=== PATIENT | female | born 1960 | race Caucasian/White ===

== ENCOUNTER → 2023-12-05 10:11 | Outpatient (CLI) | payer OTHER, SELFPAY ==
--- NOTE | 2023-12-05 10:15 | DI.MRI.S_ITS ---
PROCEDURE: MR KNEE LT WO CON INDICATIONS: INTERNAL DERANGEMENT OF LEFT KNEE TECHNIQUE: Noncontrast sagittal PD fast spin echo and T2 fast spin echo with fat saturation, sagittal 3-D FLASH with fat saturation; coronal T1 spin echo and PD fast spin echo with fat saturation, and axial PD fast spin echo with fat saturation through the knee. COMPARISON: None. FINDINGS: Posterior medial popliteal cyst measures up to approximately 4.7 cm cc by 3.2 cm AP x 1.5 cm transverse maximal dimensions. Associated moderate surrounding soft tissue edema and fluid extends posteriorly and caudally which is the appearance of ruptured popliteal cyst in thirst surrounding soft tissues. Fluid is noted posterior to the medial and lateral menisci posterior horns suggestive of meniscocapsular separation. Mild knee joint effusion. Increased T2 weighted signal, injury/strain of the inter meniscal ligament and in the posterior oblique ligament. Menisci: Mild increased T2 weighted signal internally in the medial aspect of the posterior horn of the medial meniscus suggest chronic degenerative changes. Similar changes are noted in the medial aspect of the posterior horn of the lateral meniscus. Cruciate ligaments: The anterior and posterior cruciate ligaments appear intact. Medial structures: Increased T2 weighted signal surrounding the medial collateral ligament suggests grade 1 injury without abnormal internal signal. Mild increased T2 weighted signal in the distal semimembranosus tendon. The oblique popliteal ligament, appear intact. Visualized portions of the pes anserinus tendons appear normal. Lateral structures: Moderate increased T2 weighted signal within and surrounding the distal popliteus tendon suggests chronic injury/strain. Mild increased T2 weighted signal surrounding the lateral collateral ligament without abnormal thickening or internal signal to suggest tear. Long and short heads of the biceps femoris tendon appear intact. Iliotibial band appears normal. Anterior structures: Mild increased T2 weighted signal/thickening of the distal quadriceps tendon suggests chronic injury/strain. Patellar tendon is intact with normal signal. Patellar alignment is normal. No femoral trochlear dysplasia or ventral trochlear prominence. Bones and cartilage: Moderate diffuse irregular cartilaginous thinning in the medial compartment. Mild cartilaginous thinning in the patellofemoral greater than lateral compartments. No bone marrow contusions or fractures. The cartilage of the medial and lateral femorotibial compartments, as well as the patellofemoral compartment, appears normal in thickness. Mild subchondral edema is noted in the CS posterior aspect of the medial tibial plateau without corresponding low T1 signal likely represents degenerative change. Image quality: Excellent. IMPRESSION: Ruptured popliteal cyst which may be a cause of acute posterior medial pain. Knee joint effusion. Fluid posterior to the menisci and joint capsule some of which may be related to ruptured popliteal cyst however meniscocapsular separation which may be acute or chronic should be considered Degenerative changes and suspected chronic [id number] findings of injury/strain as discussed above some of which may be related to altered biomechanics. Dictated by: Robin Juan M.D. on 12/06/2023 at 8:31 Approved by: Robin Juan M.D. on 12/06/2023 at 9:27
== END ==
LOC: MRI 10:14
PROVIDERS: Referring Provider Physical Medicine & Rehabilitation Pain Medicine; Visit Provider Physical Medicine & Rehabilitation Pain Medicine
DX: M23.92 Unspecified internal derangement of left knee (principal); M66.0 Rupture of popliteal cyst; M25.462 Effusion, left knee
CPT/HCPCS: 73721

== ENCOUNTER → 2024-01-24 14:32 | Outpatient (CLI) | payer OTHER, SELFPAY ==
--- NOTE | 2024-01-24 14:33 | DI.MG.S_ITS ---
BILATERAL DIGITAL SCREENING MAMMOGRAM 3D/2D WITH CAD: 01/24/2024 CLINICAL: Routine screening. Family history breeast cancer. Comparison is made to exams dated: 11/27/2022 mammogram, 10/20/2021 mammogram, 10/15/2020 mammogram, and 09/27/2019 mammogram - outside location. There are scattered areas of fibroglandular density (category b / 25%-50% glandular tissue). Current study was also evaluated with a Computer Aided Detection (CAD) system. There is a benign focal asymmetry in the right breast. No significant masses, calcifications, or other findings are seen in either breast. There has been no significant interval change. IMPRESSION: BENIGN There is no mammographic evidence of malignancy. A 1 year screening mammogram is recommended. Based on the Tyrer Cuzick model (a risk assessment model) the patient's lifetime risk is 12.5% and her 10 year risk is 5.7%. According to the ACR, ACS, and NCCN guidelines, an annual breast MRI exam along with mammogram is recommended if the patient's lifetime risk is 20% or greater. This exam was interpreted at Station ID: [id number]. NOTE: For mammograms, a report in lay terms will be sent to the patient. Approximately 15% of breast malignancies will not be visualized mammographically. In the management of a palpable breast mass, a negative mammogram must not discourage biopsy of a clinically suspicious lesion. Electronically Signed By: Mandy denny/syd:01/25/2024 10:25:19 letter sent: Normal Exam ACR BI-RADS Category 2: Benign
== END ==
PROVIDERS: PCP Nurse Practitioner Family; Referring Provider Nurse Practitioner Family; Visit Provider Nurse Practitioner Family
DX: Z12.31 Encounter for screening mammogram for malignant neoplasm of breast (principal); Z80.3 Family history of malignant neoplasm of breast
CPT/HCPCS: 77063; 77067

== ENCOUNTER → 2025-02-27 11:18 | Outpatient (CLI) | payer OTHER, SELFPAY ==
--- NOTE | 2025-02-27 11:19 | DI.MG.S_ITS ---
MM screening mammo BI: 02/27/2025. BI-RADS: 1 CLINICAL: 64-year old female for bilateral screening mammogram. Tyrer-Cuzick lifetime risk of 14.7%. No personal or first-degree family history of breast cancer. Current reported family history of breast cancer: maternal aunt. The patient had a prior left breast biopsy. PRIOR EXAMS: 01/24/2024, 11/27/2022, 10/20/2021, 10/15/2020. MAMMOGRAPHY TECHNIQUE: 2D and 3D (tomosynthesis) digital mammographic views obtained, with additional images as needed for full coverage. Current study was also evaluated with a Computer Aided Detection (CAD) system. DENSITY B. There are scattered areas of fibroglandular density. MAMMOGRAPHY FINDINGS Bilateral: No suspicious mass, asymmetry, microcalcification, or other abnormality seen. IMPRESSION: * No evidence of malignancy. RECOMMENDATIONS Bilateral * Annual screening mammography. OVERALL ASSESSMENT CATEGORY BI-RADS-1: Negative. The [employer] recommends annual screening mammography beginning at age 40 for women with average risk of breast cancer. ELECTRONICALLY SIGNED: Berenice Solis M.D. on 02/27/2025 at 04:39:06 PM PT Interpreting Station ID: [id number]
== END ==
LOC: MAMMO 11:18
PROVIDERS: PCP Nurse Practitioner Family; Referring Provider Nurse Practitioner Family; Visit Provider Nurse Practitioner Family
DX: Z12.31 Encounter for screening mammogram for malignant neoplasm of breast (principal); Z80.3 Family history of malignant neoplasm of breast
CPT/HCPCS: 77063; 77067